=== PATIENT | female | born 1950 | race Caucasian/White ===

== ENCOUNTER 2018-08-19 08:16 | Emergency (ER) | payer MEDICARE, BC ==
[2018-08-19 08:37] VITALS: BP 132/57
--- NOTE | 2018-08-19 08:51 | UC ---
Complaint Female HPI - HPI Summary HPI Summary: Patient presents to urgent care with 24 hours of progressive dysuria at the end of stream. Patient denies fevers or chills. No nausea vomiting. No back pain. Patient has been drinking lots of water without improvement. Patient with history of UTI states that the same. Patient's last UTI was greater than 1 year ago. No abdominal pain. No fevers or chills. No difficulty with antibiotics. No vaginal discharge, itching, rash, or odor Patient's medications reviewed this visit - History Of Current Complaint Chief Complaint: UCGU Stated Complaint: URINARY Time Seen by Provider: 08/19/18 08:45 Hx Obtained From: Patient ?: No Onset/Duration: Gradual Onset Timing: Intermittent Severity Initially: Mild Pain Intensity: 0 - Allergies/Home Medications Allergies/Adverse Reactions: Allergies Allergy/AdvReac Type Severity Reaction Status Date / Time atorvastatin Allergy Intermediate urinary Verified 08/19/18 08:38 bleeing simvastatin Allergy Intermediate kidney Verified 08/19/18 08:38 issues codeine Allergy Mild Headache Verified 08/19/18 08:38 NSAIDS (Non-Steroidal AdvReac Intermediate Stomach Verified 08/19/18 08:38 Anti-Inflamma Cramps Home Medications: Home Medications Ezetimibe TAB* [Zetia TAB*] 10 mg PO DAILY 08/19/18 [History Confirmed 08/19/18] PMH/Surg Hx/FS Hx/Imm Hx Previously Healthy: Yes Cardiovascular History: Hypertension, Other Other Cardiovascular History: hld - Surgical History Surgical History: Yes Surgery Procedure, Year, and Place: Gastric Bypass in 10/29/2009 in [place];. Bilat Mastectomy 05/22/2013 [facility] in [place];. Breast reconstruction last 08/2014 done at [facility] in [place]; - Family History Known Family History: Positive: Hypertension - Social History Occupation: Retired Alcohol Use: None Substance Use Type: None Smoking Status (MU): Never Smoked Tobacco - Immunization History Most Recent Influenza Vaccination: August 2016 Most Recent Tetanus Shot: SPRING 2015 Review of Systems Constitutional: Negative Skin: Negative Genitourinary: Dysuria All Other Systems Reviewed And Are Negative: Yes Physical Exam - Summary Physical Exam Summary: Vital Signs Reviewed: Yes A+Ox3, no distress Eyes: Conjunctiva Clear ENT: Hearing grossly normal neck: supple Respiratory: Positive: No respiratory distress, No accessory muscle use Cardiovascular: skin color reflect adequate perfusion abd soft + BS no guarding, no rebound no cva b/l Musculoskeletal Exam: JUAREZ x 4 without difficulty Neurological: Positive: Alert, ambulatory without difficulty Psychological: Positive: Normal Response To Family Skin: Positive: no rash, no ecchymosis Triage Information Reviewed: Yes Vital Signs: Initial Vital Signs Temp 97.6 F 08/19/18 08:34 Pulse 59 08/19/18 08:34 Resp 20 08/19/18 08:34 BP 132/57 08/19/18 08:34 Pulse Ox 98 08/19/18 08:34 Complaint Female Dx - Course Course Of Treatment: Patient presents with 24 hours of dysuria at the end of urinary stream. No odor no. Patient with urgency and frequency. No back pain. No nausea vomiting. On exam non-concerning findings. Vital signs stable. Urine with blood as well as leukoesterase. Will start on Keflex. Pyridium. Culture. Return precautions discussed. - Differential Dx/Diagnosis Provider Diagnoses: dysuria Discharge - Sign-Out/Discharge Documenting (check all that apply): Patient Departure All imaging exams completed and their final reports reviewed: No Studies - Discharge Plan Condition: Stable Disposition: HOME Prescriptions: Cephalexin CAP* [Keflex 500 CAP*] 500 mg PO BID #14 cap Phenazopyridine TAB* [Pyridium 100 mg TAB*] 100 mg PO TID PRN #9 tab PRN Reason: burning with urination Patient Education Materials: Urinary Tract Infection in Women (ED) Referrals: Molly Solis NP [Primary Care Provider] - Additional Instructions: - stay well hydrated - drink plenty of non-alcoholic, non caffinated beverages - your urine will be further tested - if you require any changes to your treatment, we will contact you - this usually take 2 days - Contact your primary doctor to arrange a follow-up appointment next week. Contact your doctor or return with questions or concerns - Take your antibiotics exactly as prescribed until gone - Take pyridium as prescribed for discomfort. This will make your urine blaze orange - this is normal - Okay to alternate ibuprofen (Advil, Motrin) and Tylenol every 3 hours for pain. Take with food - Call your doctor or return with questions or concerns - Billing Disposition and Condition Condition: STABLE Disposition: Home
== END 2018-08-19 09:04 | disposition home or self-care (01) ==
LOC: UCCORT 08:16
DX: R30.0 Dysuria (principal); Z88.8 Allergy status to other drugs, medicaments and biological substances; Z88.5 Allergy status to narcotic agent; Z88.6 Allergy status to analgesic agent; I10 Essential (primary) hypertension; E78.5 Hyperlipidemia, unspecified
CPT/HCPCS: 81003; 87077; 87086; 87186; 99212; G0463